=== PATIENT | male | born 1995 | race Caucasian/White ===

== ENCOUNTER 2016-04-10 16:45 | Emergency (ER) | payer SELFPAY ==
--- NOTE | 2016-04-10 16:47 | ED Physician Chart ---
Chief Complaint/HPI - Patient Information Date Seen:: 04/10/16 Time Seen:: 16:46 Chief Complaint:: cough History of Present Illness:: 20-year-old male, otherwise healthy, complains of acute, persistent, moderate, slightly productive, cough since November. Also has associated chest wall pain after coughing attack. Coughing seems worse at night. Has tried multiple antitussives. Has also had antibiotics and steroids but no relief of symptoms. Was visiting the [facility] during the summer months. Historian:: Patient Review:: Nurse's Note Reviewed Review of Systems - Review of Systems Other: Complete system review otherwise unremarkable except as noted in HPI. Past Medical History - Past Medical History Past Medical History: No significant medical hx Family History: None Social History: Non Smoker, No Alcohol, No Drug Use, Employed Surgical History: None Psychiatricy History: None Medication: None Family Medical History - Family Member Mother Daughter History Unknown: Yes Physical Exam - Physical Examination Other:: INITIAL VITAL SIGNS: Reviewed by me GENERAL: Alert and interactive. No acute distress HEAD: Head is normocephalic and atraumatic EYES: EOMI. . No scleral icterus. No conjunctival injection ENT: Moist mucous membranes. NECK: Supple. No masses. Full range of motion RESPIRATORY: No tachypnea. Prolonged expiratory phase bilaterally. No wheezing , rales, or rhonchi CV: Regular rate and rhythm. No murmurs, rubs, or gallops ABDOMEN: Soft, non-distended, non-tender. No guarding. No rebound. No masses. EXTREMITIES: No deformity. No cyanosis. No edema. SKIN: Warm and dry. No obvious rashes. NEUROLOGIC: Alert and oriented. Face is symmetric. Speech is normal. Moves all extremities equally. Motor and sensory distally intact. Labs/Radiology/EKG Results - Lab Results Results: Lab Results 04/10/16 04/10/16 Range/Units 17:16 17:16 WBC 7.0 (4.8-10.8) Th/cmm RBC 4.75 (4.30-5.70) Mil/cmm Hgb 13.9 (13.2-17.3) gm/dL Hct 41.7 (39.0-49.0) % MCV 87.7 (80-99) fl MCH 29.3 (26.0-30.0) pg MCHC Differential 33.4 (28.0-36.0) pg RDW 11.8 (11.5-20.0) % Plt Count 168 (150-400) Th/cmm MPV 9.3 fl Neutrophils % 68.5 (40.0-80.0) % Lymphocytes % 21.5 (20.0-50.0) % Monocytes % 8.0 (2.0-10.0) % Eosinophils % 1.5 (0.0-5.0) % Basophils % 0.5 (0.0-2.0) % Sodium 139 (136-145) mEq/L Potassium 3.8 (3.5-5.1) mEq/L Chloride 105 (98-107) mEq/L Carbon Dioxide 27.5 (21.0-31.0) mEq/L Anion Gap 10.3 (7.0-16.0) BUN 14 (7-25) mg/dL Creatinine 1.0 (0.7-1.3) mg/dL Est GFR ( Amer) > 60.0 (>90) ml/min Est GFR (Non-Af Amer) > 60.0 ml/min BUN/Creatinine Ratio 14.0 Glucose 85 (70-105) mg/dL Calcium 9.5 (8.6-10.3) mg/dL Total Bilirubin 1.3 H (0.3-1.0) mg/dL AST 19 (13-39) U/L ALT 15 (7-52) U/L Alkaline Phosphatase 75 (34-104) U/L Total Protein 7.2 (6.0-8.3) gm/dL Albumin 4.3 (4.2-5.5) gm/dL Globulin 2.9 gm/dL Albumin/Globulin Ratio 1.5 (1.0-1.8) - Radiology Results Results: CT chest without contrast per radiology NAD ED Septic Shock - . Is Septic Shock (SBP<90, OR Lactate>4 mmol\L) present?: No Reassessment (Disposition) - Reassessment Reassessment:: Patient appears to have bronchitis. CT of the chest was done because patient has had x-ray last night at another ER which was unremarkable. This cough has been persistent since November. Says that when he wakes he has a large amount of phlegm. He has been coughing throughout the day. He is tried multiple medications including steroids and antibiotics with no resolution of the cough. His also used inhaled bronchodilators to which also did not help. He does have an appointment to see pulmonology on the first week of April. Provided antitussive here in the ER which seemed to have improved his symptoms. We will provide a prescription for this antitussive which she can continue at home until he is able to have follow-up with the filteration operator. Recommended also to see the primary care physician within one to 2 days. Gave return to ER precautions. Patient says he understands and agrees with the plan. Reassessment Condition:: Improved - Diagnosis Diagnosis:: Acute bronchitis - Aftercare/Follow up Instructions Aftercare/Follow-Up Instructions:: Counseled pt regarding lab results/diagnosis & need follow up, Refer to Discharge Instructions Medication Prescribed:: Promethazine with codeine - Patient Disposition Discharge/Transfer:: Home Time:: 18:52 Condition at Disposition:: Improved ED Discharge Plan - Patient Disposition Admit/Discharge/Transfer: PT DISCHARGED HOME Condition at Disposition: Improved Instructions: Bronchitis, [id number]
[2016-04-10 16:59] VITALS: BP 120/80
[2016-04-10] MEDS ORDERED: Codeine/Promethazine Susp 5 mL UDC PO STA (17:04)
[2016-04-10] MEDS ORDERED: Codeine/Promethazine Susp 5 mL UDC ONE (17:08)
[2016-04-10 17:25] LABS: % BASOPHILS 0.5 % (0.0-2.0); % EOSINOPHILS 1.5 % (0.0-5.0); % LYMPHOCYTES 21.5 % (20.0-50.0); % NEUTROPHILS 68.5 % (40.0-80.0); HEMATOCRIT 41.7 % (39.0-49.0); HEMOGLOBIN 13.9 gm/dL (13.2-17.3); MEAN CELL VOLUME 87.7 fl (80-99); MEAN CORPUSCULAR HEMOGLOBIN 29.3 pg (26.0-30.0); MEAN CORPUSCULAR HGB CONC 33.4 pg (28.0-36.0); MEAN PLATELET VOLUME 9.3 fl; NEUTROPHILE ABSOLUTE 4.8 Th/cmm (1.8-8.0); PLATELET COUNT 168 Th/cmm (150-400); RED BLOOD COUNT 4.75 Mil/cmm (4.30-5.70); RED CELL DISTRIBUTION WIDTH 11.8 % (11.5-20.0)
[2016-04-10 17:37] LABS: ALB/GLOB RATIO 1.5 (1.0-1.8); ALKALINE PHOSPHATASE 75 U/L (34-104); ANION GAP 10.3 (7.0-16.0); BILIRUBIN,TOTAL 1.3 mg/dL (0.3-1.0); BUN - UREA NITROGEN 14 mg/dL (7-25); CALCIUM SERUM 9.5 mg/dL (8.6-10.3); CARBON DIOXIDE 27.5 mEq/L (21.0-31.0); CHLORIDE 105 mEq/L (98-107); GLUCOSE 85 mg/dL (70-105); POTASSIUM SERUM 3.8 mEq/L (3.5-5.1); SGOT 19 U/L (13-39); SGPT/ALT 15 U/L (7-52); SODIUM SERUM 139 mEq/L (136-145)
--- NOTE | 2016-04-11 09:39 | Diagnostic Imaging Report ---
History: Chest pain TECHNIQUE: Images were obtained on the [employer] Light Speed Ultra CT Scanner then reformatted in coronal plane. CTDI is [5.5]mGy.DLP 230] FINDINGS: [Lung windows reveal no infiltrates or mass lesions. No pleural effusions. No enlargement of axillary hilar or mediastinal lymph nodes. Heart and great vessels are normal in appearance. No pericardial effusion. Imaging through the upper abdomen reveal no masses in the upper portions of the liver spleen or kidneys. No adrenal masses. Bone windows reveal no lytic or blastic lesions of bone.] IMPRESSION: [No acute disease on this noncontrast study of the chest]
== END 2016-04-10 19:44 | disposition home or self-care (01) ==
LOC: ER 16:45
DX: J20.9 Acute bronchitis, unspecified (principal); Z88.8 Allergy status to other drugs, medicaments and biological substances
CPT/HCPCS: 36415-UA; 71250-TC; 80053-TC; 85025-TC; 85379-TC; 86635-90

== ENCOUNTER 2016-04-20 03:04 | Emergency (ER) | payer OTHER ==
[2016-04-20 04:05] LABS: % BASOPHILS 0.5 % (0.0-2.0); % EOSINOPHILS 2.3 % (0.0-5.0); % LYMPHOCYTES 30.3 % (20.0-50.0); % MONOCYTES 7.8 % (2.0-10.0); % NEUTROPHILS 59.1 % (40.0-80.0); HEMATOCRIT 41.1 % (39.0-49.0); HEMOGLOBIN 14.1 gm/dL (13.2-17.3); MEAN CORPUSCULAR HEMOGLOBIN 29.6 pg (26.0-30.0); MEAN CORPUSCULAR HGB CONC 34.4 pg (28.0-36.0); MEAN PLATELET VOLUME 9.4 fl; PLATELET COUNT 147 Th/cmm (150-400); RED BLOOD COUNT 4.78 Mil/cmm (4.30-5.70); RED CELL DISTRIBUTION WIDTH 11.7 % (11.5-20.0); WHITE BLOOD COUNT 8.4 Th/cmm (4.8-10.8)
[2016-04-20 04:21] LABS: ANION GAP 8.4 (7.0-16.0); BUN - UREA NITROGEN 22 mg/dL (7-25); BUN/CREATININE RATIO 24.4; CALCIUM SERUM 9.8 mg/dL (8.6-10.3); CARBON DIOXIDE 26.6 mEq/L (21.0-31.0); CHLORIDE 104 mEq/L (98-107); CREATININE - SERUM 0.9 mg/dL (0.7-1.3); GLUCOSE 102 mg/dL (70-105); SODIUM SERUM 135 mEq/L (136-145)
--- NOTE | 2016-04-20 04:22 | ED Physician Chart ---
History of Present Illness <Heidy Le Last Filed: 04/20/16 04:14> - General Source: Patient Exam Limitations: No Limitations - History of Present Illness Timing/Duration: week (TWO) Cough Quality/Degree: productive cough Possible Cause: no prior episodes Modifying Factors: coughing Associated Symptoms: denies symptoms <Leroy Schaefer Last Filed: 04/20/16 04:37> - General Chief Complaint: Cough Stated Complaint: CHEST-THROAT PAIN-CONGESTION - History of Present Illness Allergies/Adverse Reactions: Allergies guaifenesin Allergy (Verified 04/10/16 17:11) Home Medications: Ambulatory Orders Guaifenesin/Codeine Phosphate [Cheratussin AC 10 mg/5 ml-100 mg/5 ml 120 ml] 5 ml PO PRN PRN 04/10/16 Past History - Social History Smoking Status: Never smoker Hx Alcohol Use: No Hx Drug Use: No <Heidy Le - Last Filed: 04/20/16 04:14> - Past Medical History Medical History: No Pertinent History Surgical History: No surgical history <Leroy Schaefer Last Filed: 04/20/16 04:37> Family Medical History - Family Member Mother Daughter History Unknown: Yes <Heidy Le Last Filed: 04/20/16 04:14> Review of Systems - Review of Systems Constitutional: Reports: Fever EENTM: Reports: Throat pain Respiratory: Reports: Cough, Short of Breath Cardiology: Reports: No symptoms reported Gastrointestinal/Abdominal: Reports: No symptoms reported Genitourinary: Reports: No Symptoms Reported Musculoskeletal: Reports: No Symptoms Reported Skin: Reports: No Symptoms Reported Neurological: Reports: No Symptoms Reported Hematologic/Lymphatic: Reports: No Symptoms Reported Immunological/Allergic: Reports: No Symptoms Reported All Other Systems: Reviewed and Negative <Leroy Schaefer Last Filed: 04/20/16 04:37> Physical Exam - Physical Exam General Appearance: no apparent distress ENT Exam: normal ENT inspection Neck: non-tender Respiratory: rhonchi, wheezing Cardiovascular/Chest: normal peripheral pulses Gastrointestinal/Abdominal: Normal bowel sounds, Non tender, Soft Extremity: normal range of motion 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, alert Skin Exam: normal color, warm/dry Lymphatic: no adenopathy <Leroy Schaefer Last Filed: 04/20/16 04:37> Departure <Heidy Le - Last Filed: 04/20/16 04:14> <Leroy Schaefer - Last Filed: 04/20/16 04:37> - Departure Disposition: PT DISCHARGED HOME Instructions: Bronchitis, [id number] Home Medications: Ambulatory Orders Guaifenesin/Codeine Phosphate [Cheratussin AC 10 mg/5 ml-100 mg/5 ml 120 ml] 5 ml PO PRN PRN 04/10/16 ED Discharge Plan <Heidy Le - Last Filed: 04/20/16 04:14> <Leroy Schaefer - Last Filed: 04/20/16 04:37> - Patient Disposition Admit/Discharge/Transfer: PT DISCHARGED HOME Instructions: Bronchitis, [id number] Additional Instructions: follow up with your primary medical doctor in 2-3 days if not feeling better take prescribed medications as ordered
--- NOTE | 2016-04-20 10:26 | Diagnostic Imaging Report ---
CHEST X-RAY: AP view INDICATION: Chest congestion COMPARISON: None FINDINGS: There is incomplete visualization of the costophrenic recesses. No focal consolidation or pleural abnormalities. The heart is normal in size. The osseous structures demonstrate no acute abnormalities. IMPRESSION: No focal consolidation or evidence of CHF.
== END 2016-04-20 04:20 | disposition home or self-care (01) ==
LOC: ER 03:04
DX: J40 Bronchitis, not specified as acute or chronic (principal); Z88.8 Allergy status to other drugs, medicaments and biological substances
CPT/HCPCS: 99285; 93005; 71010; 36415; 85025; 80048; J0696; J2930